=== PATIENT | female | born 1990 | race Caucasian/White ===

== ENCOUNTER 2018-02-02 09:09 | Inpatient (IN) ==
[2018-02-02] MEDS ORDERED: Sod Chloride 0.9% Inj 1,000 ML IV.CONT PRN (09:20)
[2018-02-02] MEDS ORDERED: fentaNYL Citrate Inj 100 MCG/2 ML Ampul IV.PUSH PRN ×2 (09:20)
[2018-02-02] MEDS ORDERED: Naloxone Inj 0.4 MG/ML Vial IV.PUSH PRN ×2 (09:20→17:04)
[2018-02-02] MEDS ORDERED: Sodium Chlor 0.9% Inj 500 ML IV.SIG PRN (09:20)
[2018-02-02] MEDS ORDERED: Citric Acid/Sodium Citrate Liq 30 ML UDC PO SCH (09:30)
[2018-02-02] MEDS ORDERED: Penicillin G Potassium Inj 5,000,000 UNIT in Sodium Chloride 0.9% Inj 100 ML IV.SIG ONE (09:32)
[2018-02-02] MEDS ORDERED: Oxytocin 30 Units/500ml Premix 30 UNITS/500 ML BAG IV.SIG ONE (09:35)
[2018-02-02 09:50] LABS: Baso % (Auto) 0.6 % (0.0-2.0); Eos # (Auto) 0.1 th/mm3 (0.0-0.4); Eos % (Auto) 0.8 % (0.0-4.0); Hemoglobin 12.5 gm/dL (11.6-15.3); Lymph # (Auto) 1.7 th/mm3 (1.0-4.8); Mean Corpuscular HGB Conc 34.8 % (32.0-36.0); Mean Corpuscular Hemoglobin 30.8 pg (27.0-34.0); Mean Corpuscular Volume 88.3 fL (80.0-100.0); Mean Platelet Volume 8.5 fL (7.0-11.0); Mono # (Auto) 0.5 th/mm3 (0.0-0.9); Mono % (Auto) 5.8 % (0.0-8.0); Neut # (Auto) 6.1 th/mm3 (1.8-7.7); Neut % (Auto) 72.8 % (16.0-70.0); Platelet Count 228 th/mm3 (150-450); Red Blood Count 4.07 mil/mm3 (4.00-5.30); Red Cell Distribution Width 14.9 % (11.6-17.2); White Blood Count 8.4 th/mm3 (4.0-11.0)
[2018-02-02] MEDS ORDERED: Lidocaine 1% Inj 50 ML Vial ONE (10:04)
[2018-02-02] MEDS ORDERED: fentaNYL 2MCG-Bupiv 0.125% Epi 150 ML EPIDURAL ONE (10:10)
[2018-02-02 10:13] LABS: Bacteria,Urine Rare /hpf; Bilirubin,Urine Negative (Negative); Clarity,Urine Hazy (Clear); Color,Urine Yellow (Yellw/Straw); Glucose,Urine (UA) Negative (Negative); Hyaline Casts,Urine 1 /lpf (0-3); Leukocyte Esterase,Urine Negative (Negative); Mucus,Urine Few /lpf (Occasional); Nitrite,Urine Negative (Negative); Specific Gravity,Urine 1.019 (1.002-1.035); Squamous Epithelial Cell,Urine 4 /hpf (0-5)
[2018-02-02 10:22] LABS: Amphetamine Urine With Conf Neg (Neg); Benzodiazepine Urine With Conf Neg (Neg)
[2018-02-02] MEDS ORDERED: Lidocaaine 1.5%/Epinephrine 1:200,000 PF Inj 5 ML Amp ONE (10:32)
[2018-02-02] MEDS ORDERED: Lidocaine PF 1% Inj 5 ML Vial ONE (10:32)
[2018-02-02] MEDS ORDERED: fentaNYL 2MCG-Bupiv 0.125% Epi 150 ML EPIDURAL PRN (12:00)
[2018-02-02] MEDS ORDERED: fentaNYL Citrate Inj 100 MCG/2 ML Ampul EPIDURAL ONE (12:00)
[2018-02-02] MEDS: Penicillin G Potassium Inj 2,500,000 UNIT in Sodium Chlor 0.9% Inj 100 ML IV.SIG SCH ×2 (13:31→19:37)
[2018-02-02] MEDS ORDERED: Oxytocin 30 Units/500ml Premix 30 UNITS/500 ML BAG IV.SIG PRN (15:04)
[2018-02-02] MEDS ORDERED: Measles/Mumps/Rubella Vaccine Inj 0.5 ML Vial SQ ONE (16:00)
[2018-02-02] MEDS ORDERED: Diphtheria/Tetanus/Pertussis Vaccine Inj 0.5 ML Syringe IM ONE (16:00)
[2018-02-02] MEDS ORDERED: Oxytocin 30 Units/500ml Premix 30 UNITS/500 ML BAG IV.CONT PRN (17:04)
[2018-02-02] MEDS ORDERED: Bisacodyl 10 MG Supp RECTAL PRN (17:04)
[2018-02-02] MEDS ORDERED: Witch Hazel 50%/Glyderin 12.5% 40 Pad Jar RECTAL PRN (17:04)
[2018-02-02] MEDS ORDERED: Benzocaine 20% Top Spray 60 ML Can TOPICAL PRN (17:04)
[2018-02-02] MEDS ORDERED: Zolpidem Tartrate 5 MG Tablet PO PRN (17:04)
[2018-02-02] MEDS ORDERED: Acetaminophen 325 MG Tablet PO PRN (17:04)
--- NOTE | 2018-02-02 17:04 | P.OBDELI ---
Weeks Gestation: 39 Patient Started Active Labor: Yes Medical Induction of Labor: No Artificial Rupture of Membrane: No Anesthesia: Epidural Episiotomy: none Vaginal Delivery: Normal Presentation: Occiput anterior Nuchal Cord: None Delayed Cord Clamping (45 sec): Yes Placenta: Spontaneous delivery, Intact, 3 vessel cord Laceration: Perineal, 2 deg Repair: Chromic interrupted, Chromic running Estimated blood loss (mL): 300 : Male, Single
[2018-02-02] MEDS: Senna/Docusate Sodium 8.6/50 MG Tablet PO SCH (22:04)
[2018-02-03] MEDS: Senna/Docusate Sodium 8.6/50 MG Tablet PO SCH (09:00)
[2018-02-03] MEDS: Prenatal Vit/Ca/Iron/Folic Acid Tablet PO SCH ×2 (09:00→09:18)
--- NOTE | 2018-02-03 19:37 | MD ---
cc: Onesimo Sanders MD, Christine C MD DATE OF DISCHARGE: 02/04/2018 ADMITTING DIAGNOSIS: Term . DISCHARGE DIAGNOSES: Term plus delivery. HOSPITAL COURSE: A 27-year-old white female, para 1-0-0-1, was admitted on 02/02/2018, had a spontaneous vaginal delivery of a viable male infant. She was GBS positive and received 2 doses of penicillin prior to delivery and has RhoGAM ordered to be given prior to discharge. She will be discharged home today. The baby is cleared for discharge. She was advised NPV, light activity, return to see Dr. Mullen and Lily in 6 weeks and to call abnormal pain, bleeding, temperature, signs of infection or depression. She will take OTC Motrin and Tylenol for pain relief. Onesimo Sanders MD JAW/ct , 10:43 AM , 10:47 AM MTDLara
[2018-02-04] MEDS: Senna/Docusate Sodium 8.6/50 MG Tablet PO SCH ×2 (00:23→08:23)
[2018-02-04] MEDS: Prenatal Vit/Ca/Iron/Folic Acid Tablet PO SCH ×2 (08:23→12:25)
== END 2018-02-04 13:41 | disposition home or self-care (01) ==
LOC: H2E 09:10 → H1EA 19:40
PROVIDERS: ADMIT Obstetrics & Gynecology; ATTEND Obstetrics & Gynecology